=== PATIENT | female | born 1930 | race Caucasian/White ===

== ENCOUNTER 2018-12-26 06:26 | Day surgery (SDC) | payer MEDICARE ==
[2018-12-19 12:03] LABS: BASOPHILS % (AUTO) 0.6 % (0-1); EOSINOPHILS # (AUTO) 0.2 X10'3 (0-0.9); EOSINOPHILS % (AUTO) 4.4 % (0-6); LYMPHOCYTES # (AUTO) 1.2 X10'3 (1.1-4.8); LYMPHOCYTES % (AUTO) 24.9 % (21-51); MEAN CORPUSCULAR HEMOGLOBIN 27.7 PG (27.0-31.0); MEAN CORPUSCULAR HGB CONC 31.9 g/dL (33.0-36.5); MEAN CORPUSCULAR VOLUME 87.1 FL (78-98); MEAN PLATELET VOLUME 8.4 FL (7.4-10.4); MONOCYTES # (AUTO) 0.3 X10'3 (0-0.9); MONOCYTES % (AUTO) 6.4 % (2-12); NEUTROPHILS # (AUTO) 3.1 X10'3 (1.8-7.7); NEUTROPHILS % (AUTO) 63.7 % (42-75); PRE OP HEMOGLOBIN 11.8 g/dL (12.0-16.0); PRE OP PLATELET COUNT 125 X10'3 (140-440); RED BLOOD COUNT 4.25 X10'6 (4.20-5.60); RED CELL DISTRIBUTION WIDTH 16.6 % (11.5-14.5)
[2018-12-19 12:18] LABS: ALBUMIN 3.4 G/DL (3.4-5.0); ALBUMIN/GLOBULIN RATIO 0.9 (1.1-1.5); ALKALINE PHOSPHATASE 73 IU/L (46-116); BLOOD UREA NITROGEN 24 MG/DL (7-18); BUN/CREATININE RATIO 18.3 (6.6-38.0); CALCIUM 9.6 MG/DL (8.5-10.1); CHLORIDE 105 MMOL/L (99-107); CREATININE 1.31 MG/DL (0.40-0.90); PRE OP ALT 44 U/L (30-65); PRE OP ANION GAP 8 (8-16); PRE OP AST 34 U/L (10-37); PRE OP BILIRUB, TOTAL 0.5 MG/DL (0.0-1.0); PRE OP GLUCOSE 174 MG/DL (70-104); PRE OP POTASSIUM 4.5 MMOL/L (3.4-5.1); PRE OP SODIUM 142 MMOL/L (135-145); eGFR 38 ML/MIN
[~2018-12-26] VITALS: Ht 157.5 cm; Wt 94.3 kg
[~2018-12-26 06:26] MED LIST: ASPI-611 PO; ATOR40TA PO; CALC-1040 PO; CARV6.256 PO; CHOL400T14 PO; DOCUMENT DATE & TIME OF BETA-BLOCKER PO ONE; FURO80TA87 PO; GABA800T11 PO; GLIM2TAB2 PO; HYDR-3964 PO; HYDR200T84 PO; IRON PO; LEVO125T8 PO; METF-438 PO; OMEP40CA37 PO; POTA10TA21 PO; ceFAZolin 2gm in dextrose, iso 100 ML IV ONE; famotidine 20mg tablet PO ONE; ringers solution, lacted 1,000 ML IV SCH
[2018-12-26 06:45] VITALS: BP 171/58
[2018-12-26] MEDS ORDERED: BUPIVAcaine/PF 2.5mg/ml (0.25%) 10ml vial ONE ×2 (06:53→09:08)
[2018-12-26] MEDS ORDERED: ringers solution, lacted 1,000 ML IV SCH (07:43)
[2018-12-26] MEDS ORDERED: morphine 4 MG/ML inj SYRINge IV PRN ×2 (07:45)
[2018-12-26] MEDS ORDERED: proCHLORperazine 10 MG/2 ml inj IV PRN (07:45)
[2018-12-26] MEDS ORDERED: meperidine/PF 25mg/ml syringe IV PRN ×3 (07:45)
[2018-12-26] MEDS ORDERED: ondansetron/PF 4mg/2ml inj IV PRN (07:45)
[2018-12-26] MEDS ORDERED: LIDOcaine 0.5% (5mg/ml) 50ml vial ONE (08:58)
[2018-12-26] MEDS ORDERED: fentaNYL/PF 50MCG/1 ML 2ML syringe ONE (09:03)
[2018-12-26] MEDS ORDERED: midazolam 2 mg/2 ml injection ONE (09:03)
[2018-12-26 09:36] VITALS: BP 164/88
--- NOTE | 2018-12-26 09:36 | NUR ---
Received from OR via [facility] , accompanied by Anesthesiologist BEN and report given by Anesthesiolgist. PATIENT WITH 20G PIV IN LEFT UE RUNNING LR AT 100. PATIENT WITH WRIST DRESSING TO RIGHT UE. + CAP REFILL AND SENSATION. DENIES PAIN AND VSS AT THIS TIME. Addendum: 12/26/18 at 0953 by Benny Gutierrez RN, RN Amended: Links added.
[2018-12-26 09:46] VITALS: BP 166/72
[2018-12-26 09:56] VITALS: BP 164/77
[2018-12-26 10:06] VITALS: BP 167/71
--- NOTE | 2018-12-26 10:16 | NUR ---
ALL DC CRITERIA HAS BEEN MET. IV TAKEN OUT WITHOUT COMPLICATIONS. ALL INSTRUCTIONS COVERED AND ALL QUESTIONS ANSWERED. DRESSINGS CDI. OUT VIA WHEELCHAIR TO PERSONAL VEHICLE WHERE PATIENT WAS SECURED IN AND DRIVEN HOME BY FAMILY. Addendum: 12/26/18 at 1031 by Benny Gutierrez RN, RN Amended: Links added.
== END 2018-12-26 10:16 | disposition home or self-care (01) ==
LOC: PAS 06:26
PROVIDERS: ATTEND Orthopaedic Surgery Hand Surgery
PROC: 0JBJ0ZZ Excision of Right Hand Subcutaneous Tissue and Fascia, Open Approach (ICD-10-PCS; principal; 2018-12-26 09:01)
DX: D23.61 Other benign neoplasm of skin of right upper limb, including shoulder (principal); M67.441 Ganglion, right hand; R20.8 Other disturbances of skin sensation; E11.9 Type 2 diabetes mellitus without complications; M19.90 Unspecified osteoarthritis, unspecified site; K21.9 Gastro-esophageal reflux disease without esophagitis; I25.2 Old myocardial infarction; M06.9 Rheumatoid arthritis, unspecified; Z98.890 Other specified postprocedural states; Z90.49 Acquired absence of other specified parts of digestive tract; M06.341 Rheumatoid nodule, right hand
CPT/HCPCS: 11422; 26160; 36415; 80053; 82948; 85025; 93005; A6222; J0690; J2001; J2250; J3010; J3490; J7120; A6449; A7000